=== PATIENT | male | born 1965 | race Caucasian/White ===

== ENCOUNTER 2019-01-29 08:23 | Day surgery (SDC) | payer OTHER ==
[~2019-01-29] VITALS: Ht 182.9 cm; Wt 100.7 kg
[~2019-01-29 08:23] MED LIST: ALBU83IN NEB; AMBI10TA PO; ATIV1TAB10 PO; FLUO20CA19 PO; PROT20TA11 PO; TAMS1CAP17 PO; TRAZ1TAB14 PO; [UNRECOGNIZED DRUG - OTHER] PO
[2019-01-29] MEDS ORDERED: NS 1,000 ML IV ONE (08:30)
[2019-01-29] MEDS ORDERED: BUPR150T3 PO (08:44)
[2019-01-29] MEDS ORDERED: LITH300C PO (08:44)
[2019-01-29] MEDS ORDERED: ADDE20CA3 PO (08:44)
[2019-01-29] MEDS ORDERED: LIDOCAINE 2% INJ 100 MG/5 ML SDV (FOR ANES.) As Ordered ONE (08:57)
[2019-01-29] MEDS ORDERED: PROPOFOL 200 MG/20 ML VIAL As Ordered ONE ×2 (08:57→10:04)
--- NOTE | 2019-01-29 09:29 | ROOR ---
Patient Name: Walter Gambino Procedure Date: 01/29/2019 9:07 AM Date of : 1965 Age: 53 Room: [facility] Gender: Male Note Status: Finalized Procedure: Upper Endoscopy + Biopsies Indications: Epigastric abdominal pain Providers: Sav Yang MD Referring MD: Violet Bahena Np Requesting Provider: Medicines: Monitored Anesthesia Care Complications: No immediate complications. Procedure: Pre-Anesthesia Assessment: - The heart rate, respiratory rate, oxygen saturations, blood pressure, adequacy of pulmonary ventilation, and response to care were monitored throughout the procedure. The Endoscope was introduced through the mouth, and advanced to the second part of duodenum. The upper GI endoscopy was accomplished without difficulty. The patient tolerated the procedure well. Findings: The Z-line was variable and was found 45 cm from the incisors. Multiple biopsies were obtained with cold forceps for evaluation to rule out Tubbs's Esophagus randomly at the gastroesophageal junction. A small hiatal hernia was present. No other significant abnormalities were identified in a careful examination of the stomach. Biopsies were taken with a cold forceps in the gastric antrum for Helicobacter pylori testing. The exam was otherwise without abnormality. Impression: - Z-line variable, 45 cm from the incisors. - Small hiatal hernia. - The examination was otherwise normal. - Multiple biopsies were obtained at the gastroesophageal junction. - Biopsies were taken with a cold forceps for Helicobacter pylori testing. - The examination was otherwise normal. Recommendation: - Patient has a contact number available for emergencies. The signs and symptoms of potential delayed complications were discussed with the patient. Return to normal activities tomorrow. Written discharge instructions were provided to the patient. - High fiber diet. - Discharge patient to home. - Follow an antireflux regimen. - Continue present medications. - Await pathology results. - Telephone GI clinic for pathology results in 1 week. - Return to referring physician. - The findings and recommendations were discussed with the patient's family. Sav Yang MD Sav Yang MD 01/29/2019 9:28:58 AM Electronically signed by Sav Yang MD Number of Addenda: 0 Note Initiated On: 01/29/2019 9:07 AM Estimated Blood Loss: Estimated blood loss: none.
--- NOTE | 2019-01-29 09:45 | ROOR ---
Patient Name: Walter Gambino Procedure Date: 01/29/2019 9:09 AM Date of : 1965 Age: 53 Room: [facility] Gender: Male Note Status: Finalized Procedure: Total Colonoscopy to Cecum Indications: Screening for colorectal malignant neoplasm Providers: Sav Yang MD Referring MD: Violet Bahena Np Requesting Provider: Medicines: Monitored Anesthesia Care Complications: No immediate complications. Procedure: Pre-Anesthesia Assessment: - The heart rate, respiratory rate, oxygen saturations, blood pressure, adequacy of pulmonary ventilation, and response to care were monitored throughout the procedure. The Colonoscope was introduced through the anus and advanced to the cecum, identified by appendiceal orifice and ileocecal valve. The colonoscopy was performed without difficulty. The patient tolerated the procedure well. The quality of the bowel preparation was excellent. Findings: The perianal and digital rectal examinations were normal. Non-bleeding internal hemorrhoids were found during retroflexion. The hemorrhoids were small and Grade I (internal hemorrhoids that do not prolapse). Scattered small-mouthed diverticula were found in the recto-sigmoid colon, sigmoid colon and descending colon. The exam was otherwise without abnormality on direct and retroflexion views. Impression: - Non-bleeding internal hemorrhoids. - Diverticulosis in the recto-sigmoid colon, in the sigmoid colon and in the descending colon. - The examination was otherwise normal on direct and retroflexion views. - No specimens collected. - The exam was otherwise normal to the cecum. Recommendation: - Patient has a contact number available for emergencies. The signs and symptoms of potential delayed complications were discussed with the patient. Return to normal activities tomorrow. Written discharge instructions were provided to the patient. - High fiber diet. - Discharge patient to home. - Continue present medications. - Repeat colonoscopy in 10 years for screening purposes. - Return to referring physician. - The findings and recommendations were discussed with the patient's family. Sav Yang MD Sav Yang MD 01/29/2019 9:44:44 AM Electronically signed by Sav Yang MD Number of Addenda: 0 Note Initiated On: 01/29/2019 9:09 AM Estimated Blood Loss: Estimated blood loss: none.
[2019-01-29 10:12] VITALS: BP 139/75
== END 2019-01-29 10:14 | disposition home or self-care (01) ==
LOC: M OPP 08:23
PROVIDERS: ATTEND Internal Medicine Gastroenterology
DX: K64.0 First degree hemorrhoids (principal); K57.30 Diverticulosis of large intestine without perforation or abscess without bleeding; K22.8 Other specified diseases of esophagus; K44.9 Diaphragmatic hernia without obstruction or gangrene; R10.13 Epigastric pain; Z12.11 Encounter for screening for malignant neoplasm of colon

== ENCOUNTER → 2021-01-29 | Outpatient (CLI) | payer OTHER ==
[~2021-01-29] MED LIST changes: +ADDE20CA3 PO; +BUPR150T12 PO; -FLUO20CA19 PO; +FLUO20CA22 PO; +LITH300C PO; +PROHANCE 279.3MG/ML 15ML VIAL As Ordered ONE; +PROHANCE 279.3MG/ML 5ML VIAL As Ordered ONE
--- NOTE | 2021-01-29 17:06 | REP ---
INDICATION: PROSTATE CA. COMPARISON: None. TECHNIQUE: Using a phased array surface coil, small imlna-zw-hvah imaging was acquired using T2 weighted scans in the axial, coronal, and sagittal imaging planes. Small vyvfh-bt-dvqm diffusion-weighted sequences are acquired. Small uamwb-gq-yawh axial T1 weighted scans are acquired dynamically before and after the intravenous administration of 20 mL of ProHance. Imaging is reviewed using the [employer] computer-aided detection system. FINDINGS: No bone lesion is seen of the visualized osseous structures. There is metallic fixation in the lower lumbar spine. No adenopathy or free fluid visualized in the pelvis. Small bilateral inguinal hernias contain fat. Seminal vesicles appear unremarkable. Bladder wall appears somewhat thickened diffusely. The capsule of the prostate appears intact. The prostate measures 4.1 x 3.6 x 4.0 cm for total volume of 32.91 cc. 3 regions of interest are identified. In the midline of the apical anterior stroma and in the anterior apical transitional zone there is an oval area of markedly hypointense T2 signal which is also somewhat hypointense on diffusion-weighted imaging. There is no significant internal enhancement. The area measures 2.3 x 1.2 x 1.0 cm for total volume of 2.01 cc. Overall level suspicion is 3/5 with clinically significant cancer equivocal. In the right mid and basilar transitional zone there is an ill-defined area of T2 and DWI hypointensity with some areas of type 3 internal enhancement. The area measures 2.1 x 1.4 x 1.7 cm for total volume of 2.69 cc. Overall level suspicion is 3/5 with clinically significant cancer equivocal. In the left basilar and mid transitional zone there is an ill-defined area of relative hypointensity on T2 and DWI imaging with mixed internal enhancement, some areas of type 3 enhancement. The area measures 1.9 x 0.8 x 1.4 cm for total volume of 1.77 cc. Overall level suspicion is 3/5 with clinically significant cancer equivocal. IMPRESSION: Three regions of interest identified demonstrating equivocal findings of clinically significant cancer. Prostate capsule appears intact. There is mild diffuse bladder wall thickening. No adenopathy in the pelvis. <Electronically signed by Pankaj Herman > 01/29/21 [id number]
== END ==
LOC: M RAD 14:21
PROVIDERS: ATTEND Nurse Practitioner Women's Health
DX: C61 Malignant neoplasm of prostate (principal)
CPT/HCPCS: 72197; A9576

== ENCOUNTER → 2021-02-03 | Outpatient (CLI) | payer OTHER ==
[~2021-02-03] MED LIST changes: -PROHANCE 279.3MG/ML 15ML VIAL As Ordered ONE; -PROHANCE 279.3MG/ML 5ML VIAL As Ordered ONE
--- NOTE | 2021-02-03 15:46 | REPPI ---
INDICATION: ELEVATED PSA. COMPARISON: None. TECHNIQUE: Transrectal sonographic guidance for MR ultrasound fusion and TRUS needle biopsy.. FINDINGS: . Transrectal sonographic guidance is provided to Dr. Ingram who performed trans rectal ultrasound guided needle biopsy procedure. IMPRESSION: Transrectal prostate sonographic guidance as above. <Electronically signed by Ahsan Reyes > 02/03/21 [id number]
== END ==
LOC: M PLAIMG 09:35
PROVIDERS: ATTEND Urology
DX: R97.20 Elevated prostate specific antigen [PSA] (principal)
CPT/HCPCS: 76942; G0416